=== PATIENT | female | born 1985 | race African-American/Black ===

== ENCOUNTER 2016-10-18 15:56 | Emergency (ER) | payer OTHER ==
[2016-10-18] MEDS ORDERED: DILAUDID 1 MG/ML AMP ONE (16:47)
[2016-10-18] MEDS ORDERED: ONDANSETRON 4 MG VIAL ONE (16:47)
== END 2016-10-18 19:13 | disposition home or self-care (01) ==
LOC: FASTR 15:56
CPT/HCPCS: 36415; 76830; 80053; 81001; 83690; 84703; 85025; 87491; 87591; 87800; 96374; 96375